=== PATIENT | female | born 1955 | race Caucasian/White ===

== ENCOUNTER → 2016-09-29 | Outpatient (CLI) | payer BC ==
--- NOTE | 2016-09-30 08:47 | MM ---
Reason for exam: screening (asymptomatic). Last mammogram was performed 1 year and 1 month ago. History: Patient is postmenopausal and has history of other cancer at age 54. Family history of breast cancer in sister at age 69. Benign left breast needle localization of the left breast, July 24, 2011. Benign excisional biopsy of the left breast, 2005. Took estrogen for 8 years. Took progesterone for 8 years. Physical Findings: A clinical breast exam by your physician is recommended on an annual basis and results should be correlated with mammographic findings. MG 3D Screening Mammo W/Cad Bilateral CC and MLO view(s) were taken. Prior study comparison: August 29, 2015, bilateral MG 3d screening mammo w/cad. July 23, 2014, bilateral MG screening mammo w CAD. There are scattered fibroglandular densities. Focal asymmetry in the left breast central position middle depth. This finding is changed when compared with previous exams. ASSESSMENT: Incomplete: need additional imaging evaluation, BI-RAD 0 RECOMMENDATION: Ultrasound of the left breast. [facility] will attempt to contact patient to return for ultrasound.
== END | disposition home or self-care (01) ==
LOC: RADMAMWWP 09:43
PROVIDERS: ATTEND Obstetrics & Gynecology
DX: Z12.31 Encounter for screening mammogram for malignant neoplasm of breast (principal); R92.8 Other abnormal and inconclusive findings on diagnostic imaging of breast
CPT/HCPCS: 77063; G0202

== ENCOUNTER → 2016-10-12 | Outpatient (CLI) | payer BC ==
--- NOTE | 2016-10-12 10:03 | USB ---
Reason for exam: additional evaluation requested from abnormal screening. History: Patient is postmenopausal and has history of other cancer at age 54. Family history of breast cancer in sister at age 69. Benign left breast needle localization of the left breast, July 24, 2011. Benign excisional biopsy of the left breast, 2005. Took estrogen for 8 years. Took progesterone for 8 years. Physical Findings: Nurse Summary: 1cm movable palpable at 3:30 in the left breast (nurse dw). US Breast Workup LT Left breast ultrasound includes all four quadrants, the retroareolar region and axilla. Finding demonstrate no cystic or solid lesion seen. These results were verbally communicated with the patient and result sheet given to the patient on 10/12/16. ASSESSMENT: Negative, BI-RAD 1 RECOMMENDATION: Stereotactic core biopsy of the left breast. Called Dr. Garcia with mammographic findings and has scheduled an appointment for the patient for 10/27/16 at 9:[address] Wong. Biopsy scheduled for 10/20/16 at 8:30. PRELIMINARY REPORT CALLED AND FAXED TO DR. WONG ON 10/12/16 AT 300/TP.
== END | disposition home or self-care (01) ==
LOC: RADUSWWP 08:06
PROVIDERS: ATTEND Obstetrics & Gynecology
DX: R92.8 Other abnormal and inconclusive findings on diagnostic imaging of breast (principal)

== ENCOUNTER → 2016-10-20 | Day surgery (SDC) | payer BC ==
[~2016-10-20] MED LIST: ALPRAZolam 0.25 MG TAB ONE; BACITRACIN OINT 1 EACH PACKET TOPICAL ONE; LIDOCAINE 1% INJ 10MG/ML (20 ML MDV) ONE; SODIUM BICARB 4% 5 ML VIAL (0.48 MEQ/ML) ONE
--- NOTE | 2016-10-20 16:13 | MM ---
EXAMINATION TYPE: MG stereo VAD BX LT DATE OF EXAM: 10/20/2016 9:49 AM COMPARISON: 09/29/2016 mammogram CLINICAL HISTORY: Abnormal mammogram TECHNIQUE: Stereotactic guided core biopsy of left breast. FINDINGS: The procedure of stereotactic guided core biopsy was explained to the patient. Benefits, alternatives, and risks were discussed. An informed consent was then obtained. Patient was placed on the table. Timeout was performed. The shortness pathway for biopsy was chosen. Shortness pathway was inferior approach. The procedure was performed by Dr. Nicholson. A vacuum assisted biopsy gun was used to obtain 4 core samples. The patient tolerated the procedure well without any immediate complication. Good hemostasis was obtained with direct pressure. The patient was kept in the radiology department for short stay after the procedure and then discharged home in stable condition. Post biopsy mammogram shows the clip to appear in satisfactory position relative to the targeted area of concern on the preprocedure images. IMPRESSION: SUCCESSFUL, UNCOMPLICATED STEREOTACTIC GUIDED CORE BIOPSY OF AREA OF CONCERN IN THE LEFT BREAST, FULL PATHOLOGY RESULTS TO FOLLOW. Pathology Results: Benign BREAST, LEFT, CORE BIOPSY: FIBROCYSTIC CHANGES INCLUDING FIBROSIS, CYSTS AND FOCAL USUAL TYPE DUCTAL HYPERPLASIA. Recommendation Follow up mammogram of the left breast in 6 months. ALEXIA
== END ==
LOC: RADMAMWWP 07:31
PROVIDERS: ATTEND Surgery
DX: N60.32 Fibrosclerosis of left breast (principal); N64.89 Other specified disorders of breast; N60.92 Unspecified benign mammary dysplasia of left breast; R92.8 Other abnormal and inconclusive findings on diagnostic imaging of breast; Z88.1 Allergy status to other antibiotic agents; Z88.5 Allergy status to narcotic agent; Z91.09 Other allergy status, other than to drugs and biological substances
CPT/HCPCS: 88305; 19081; A4648; J2001

== ENCOUNTER → 2016-11-09 | Outpatient (CLI) | payer BC ==
[2016-11-09 19:13] LABS: Basophils # (A) 0.1 k/uL (0-0.2); Basophils % (A) 1 %; CH 30.2; Eosinophils # (A) 0.1 k/uL (0-0.7); Eosinophils % (A) 1 %; HCT 46.3 % (34.0-46.0); HDW 2.85; HGB 15.9 gm/dL (11.4-16.0); Luc # (Auto) 0.16; Luc % (Auto) 2; Lymphocytes # (A) 2.1 k/uL (1.0-4.8); Lymphocytes % (A) 24 %; MCH 29.8 pg (25.0-35.0); MCHC 34.4 g/dL (31.0-37.0); MCV 86.6 fL (80.0-100.0); Mean Platelet Volume 8.1; Monocytes # (A) 0.6 k/uL (0-1.0); Monocytes % (A) 6 %; Neutrophils # (A) 5.9 k/uL (1.3-7.7); Neutrophils % (A) 66 %; RBC 5.34 m/uL (3.80-5.40); RDW 13.2 % (11.5-15.5); WBC 8.9 k/uL (3.8-10.6); WBC (Perox) 9.19
[2016-11-09 20:06] LABS: ALT 63 U/L (9-52); AST 38 U/L (14-36); Alkaline Phosphatase 118 U/L (38-126); Anion Gap 13 mmol/L; Blood Urea Nitrogen 16 mg/dL (7-17); Calcium 10.1 mg/dL (8.4-10.2); Carbon Dioxide 27 mmol/L (22-30); Chloride 99 mmol/L (98-107); Cholesterol 173 mg/dL (<200); Glucose 97 mg/dL (74-99); HDL Cholesterol 41 mg/dL (40-60); Non-African American GFR(MDRD) >60 (>60 ml/min/1.73 sqM); Potassium 4.1 mmol/L (3.5-5.1); Sodium 139 mmol/L (137-145); Total Bilirubin 0.6 mg/dL (0.2-1.3); Triglycerides 259 mg/dL (<150)
== END ==
LOC: MMGSC 10:07
PROVIDERS: ATTEND Family Medicine
DX: I10 Essential (primary) hypertension (principal); E78.5 Hyperlipidemia, unspecified; E55.9 Vitamin D deficiency, unspecified
CPT/HCPCS: 36415; 80053; 80061; 82306; 84439; 84443; 85025

== ENCOUNTER → 2016-11-16 | Outpatient (CLI) | payer BC ==
[2016-11-16 18:49] LABS: Bilirubin, Delta 0.5 mg/dL (0.0-0.2); Total Bilirubin 0.7 mg/dL (0.2-1.3); Total Protein 8.3 g/dL (6.3-8.2)
== END ==
LOC: MMGSC 11:20
PROVIDERS: ATTEND Family Medicine
DX: E55.9 Vitamin D deficiency, unspecified (principal); R79.89 Other specified abnormal findings of blood chemistry
CPT/HCPCS: 36415; 80076; 82306

== ENCOUNTER → 2016-12-22 | Outpatient (CLI) | payer BC | END | disposition home or self-care (01) | LOC: MMGSC 10:12 | PROVIDERS: ATTEND Family Medicine | DX: N39.0 Urinary tract infection, site not specified (principal) | CPT/HCPCS: 87086 ==

== ENCOUNTER → 2017-01-06 | Outpatient (CLI) | payer BC ==
--- NOTE | 2017-01-06 08:04 | US ---
EXAMINATION TYPE: US abdomen complete DATE OF EXAM: 01/06/2017 COMPARISON: US CLINICAL HISTORY: R10.11 RUQ Abd Pain. Intermittent RUQ and right flank pain, history of cholecystect odell EXAM MEASUREMENTS: Liver Length: 17.0 cm Gallbladder Wall: surgically absent CBD: 0.5 cm Spleen: 12.4 cm Right Kidney: 11.1 x 4.3 x 5.0 cm Left Kidney: 10.7 x 4.7 x 4.5 cm Pancreas: visualized portions wnl, tail partially obscured by overlying midline bowel gas Liver: measures in upper limits of normal at 17.0cm, slightly course echotexture and slightly increa sed echogenicity when compared with right kidney Gallbladder: surgically absent Evidence for sonographic Jhaveri's sign: no CBD: wnl Spleen: visualized portions wnl, limited by rib shadowing and overlying bowel gas Right Kidney: no hydronephrosis or masses seen Left Kidney: no hydronephrosis or masses seen, limited by rib shadowing and overlying bowel gas Upper IVC: wnl Abd Aorta: wnl IMPRESSION: 1. Exam is limited due to bowel gas. 2. No suspicious ultrasound findings ultrasound abdomen 3. Mild fatty infiltration of the liver.
== END | disposition home or self-care (01) ==
LOC: RADUSWWP 06:56
PROVIDERS: ATTEND Family Medicine
DX: K76.0 Fatty (change of) liver, not elsewhere classified (principal); R10.11 Right upper quadrant pain
CPT/HCPCS: 76700

== ENCOUNTER → 2017-10-20 | Outpatient (CLI) | payer BC ==
--- NOTE | 2017-10-20 10:59 | MM ---
Reason for exam: additional evaluation requested from prior study. Last mammogram was performed 1 year and 1 month ago. History: Patient is postmenopausal and has history of other cancer at age 54. Family history of breast cancer in sister at age 69. Benign MG stereo VAD BX LT of the left breast, October 20, 2016. Benign left breast needle localization of the left breast, July 24, 2011. Benign excisional biopsy of the left breast, 2005. Took estrogen for 8 years. Took progesterone for 8 years. Physical Findings: Nurse did not find any significant physical abnormalities on exam. MG 3D Diag Mammo W/Cad YOVANA Bilateral CC and MLO view(s) were taken. Prior study comparison: September 29, 2016, bilateral MG 3d screening mammo w/cad. August 29, 2015, bilateral MG 3d screening mammo w/cad. There are scattered fibroglandular densities. Previous mammotome biopsy in the left breast. There is chronic nodularity bilaterally. No significant new findings when compared with previous films. These results were verbally communicated with the patient and result sheet given to the patient on 10/20/17. ASSESSMENT: Benign, BI-RAD 2 RECOMMENDATION: Routine screening mammogram of both breasts in 1 year.
== END | disposition home or self-care (01) ==
LOC: RADMAMWWP 09:39
PROVIDERS: ATTEND Obstetrics & Gynecology
DX: R92.8 Other abnormal and inconclusive findings on diagnostic imaging of breast (principal)
CPT/HCPCS: 77066; G0279

== ENCOUNTER → 2017-10-27 | Outpatient (CLI) | payer BC ==
[2017-10-27 18:30] LABS: ALT 56 U/L (9-52); AST 48 U/L (14-36); Albumin 4.5 g/dL (3.5-5.0); Alkaline Phosphatase 115 U/L (38-126); Anion Gap 18 mmol/L; Blood Urea Nitrogen 17 mg/dL (7-17); Calcium 10.1 mg/dL (8.4-10.2); Carbon Dioxide 27 mmol/L (22-30); Chloride 99 mmol/L (98-107); Cholesterol 182 mg/dL (<200); Glucose 85 mg/dL (74-99); HDL Cholesterol 43 mg/dL (40-60); LDL Cholesterol,Calculated 93 mg/dL (0-99); Potassium 4.2 mmol/L (3.5-5.1); Sodium 144 mmol/L (137-145); Total Bilirubin 0.6 mg/dL (0.2-1.3); Total Protein 8.2 g/dL (6.3-8.2); Triglycerides 231 mg/dL (<150)
[2017-10-27 18:44] LABS: T4, Free (Free Thyroxine) 1.06 ng/dL (0.78-2.19)
[2017-10-27 19:04] LABS: Basophils # (A) 0.1 k/uL (0-0.2); Basophils % (A) 1 %; Eosinophils # (A) 0.1 k/uL (0-0.7); Eosinophils % (A) 1 %; HCT 48.4 % (34.0-46.0); HGB 16.1 gm/dL (11.4-16.0); Lymphocytes # (A) 2.2 k/uL (1.0-4.8); Lymphocytes % (A) 27 %; MCH 28.6 pg (25.0-35.0); MCHC 33.2 g/dL (31.0-37.0); MCV 86.1 fL (80.0-100.0); Mean Platelet Volume 7.7; Monocytes # (A) 0.5 k/uL (0-1.0); Monocytes % (A) 6 %; Neutrophils # (A) 5.1 k/uL (1.3-7.7); Neutrophils % (A) 63 %; Platelet Count 312 k/uL (150-450); RBC 5.62 m/uL (3.80-5.40); RDW 13.1 % (11.5-15.5); WBC 8.2 k/uL (3.8-10.6)
== END | disposition home or self-care (01) ==
LOC: MMGSC 11:27
PROVIDERS: ATTEND Family Medicine
DX: I10 Essential (primary) hypertension (principal); E78.5 Hyperlipidemia, unspecified; E55.9 Vitamin D deficiency, unspecified
CPT/HCPCS: 36415; 80053; 80061; 82306; 84439; 84443; 85025

== ENCOUNTER → 2017-11-03 | Outpatient (CLI) | payer BC | END | disposition home or self-care (01) | LOC: MMGSC 09:47 | PROVIDERS: ATTEND Family Medicine | DX: H60.92 Unspecified otitis externa, left ear (principal) | CPT/HCPCS: 87070; 87205 ==

== ENCOUNTER → 2018-10-31 | Outpatient (CLI) | payer BC ==
--- NOTE | 2018-11-01 10:08 | MM ---
Reason for exam: screening (asymptomatic). Last mammogram was performed 1 year ago. History: Patient is postmenopausal and has history of other cancer at age 54. Family history of breast cancer in sister at age 69. Benign MG stereo VAD BX LT of the left breast, October 20, 2016. Benign left breast needle localization of the left breast, July 24, 2011. Benign excisional biopsy of the left breast, 2005. Took estrogen for 8 years. Took progesterone for 8 years. Physical Findings: A clinical breast exam by your physician is recommended on an annual basis and results should be correlated with mammographic findings. MG 3D Screening Mammo W/Cad Bilateral CC and MLO view(s) were taken. Prior study comparison: October 20, 2017, bilateral MG 3d diag mammo w/cad YOVANA. September 29, 2016, bilateral MG 3d screening mammo w/cad. The breast tissue is heterogeneously dense. This may lower the sensitivity of mammography. Finding: There are typically benign circumscribed round oval stable masses in the right breast. Post biopsy change left. Left biopsy marker noted. No significant changes in finding since October 20, 2017 and September 29, 2016. ASSESSMENT: Benign, BI-RAD 2 RECOMMENDATION: Routine screening mammogram of both breasts in 1 year.
== END | disposition home or self-care (01) ==
LOC: RADMAMWWP 08:19
PROVIDERS: ATTEND Family Medicine
DX: Z12.31 Encounter for screening mammogram for malignant neoplasm of breast (principal)
CPT/HCPCS: 77063; 77067